=== PATIENT | male | born 2000 | race Two or more races ===

== ENCOUNTER 2024-09-10 12:47 | Emergency (ER) | payer OTHER ==
[~2024-09-10] VITALS: Ht 182.9 cm; Wt 81.6 kg
[2024-09-10] MEDS ORDERED: VIGAMOX3 ML OP (15:16)
[2024-09-10] MEDS ORDERED: CYCLOGYL2 ML OP (15:16)
[2024-09-10] MEDS ORDERED: VIGAMOX3 ML (15:37)
== END 2024-09-10 16:49 | disposition home or self-care (01) ==
LOC: ER 12:47
DX: H16.002 Unspecified corneal ulcer, left eye (principal)